=== PATIENT | male | born 1985 | race Caucasian/White ===

== ENCOUNTER 2018-04-11 17:05 | Emergency (ER) | payer OTHER ==
[~2018-04-11] VITALS: Ht 165.1 cm; Wt 81.8 kg
[~2018-04-11 17:05] MED LIST: NOCURR
[2018-04-11] MEDS ORDERED: KETOROLAC TROMETHAMINE 10 MG TABLET PO ONE (19:30)
[2018-04-11 19:40] VITALS: BP 110/68
== END 2018-04-11 19:45 | disposition home or self-care (01) ==
LOC: EMS 17:05
DX: K08.89 Other specified disorders of teeth and supporting structures (principal); F17.210 Nicotine dependence, cigarettes, uncomplicated; F19.90 Other psychoactive substance use, unspecified, uncomplicated
CPT/HCPCS: 99282